=== PATIENT | female | born 1970 | race Caucasian/White ===

== ENCOUNTER 2024-09-12 19:17 | Emergency (ER) | payer BC, SELFPAY ==
[2024-09-12 19:34] VITALS: BP 135/79
[2024-09-12 19:59] LABS: % Basophils 0.2 % (0-2); % Immature Granulocytes 0.5 % (0-0.5); % Lymphocytes 37.7 % (20.5-51.1); % Monocytes 5.4 % (1.7-9.3); % Neutrophils 56.2 % (42.2-75.2); Absolute Lymphocytes 2.2 10^3/uL (1.2-3.4); Absolute Monocytes 0.3 10^3/uL (0.1-0.6); Absolute Neutrophils 3.3 10^3/uL (1.4-6.5); Hematocrit 44.1 % (37.0-47.0); Hemoglobin 14.3 g/dL (12.0-16.0); Mean Corp Hgb Conc. 32.4 g/dL (33.0-37.0); Mean Corpuscular Hgb 27.7 pg (27.0-31.0); Mean Corpuscular Volume 85.5 fL (81.0-99.0); Mean Platelet Volume 8.7 fL (7.4-10.4); Nucleated Red Blood Cells % 0 %; Platelet Count 207 10^3/uL (130-400); Red Blood Cell Count 5.16 10^6/uL (4.20-5.40); Red Cell Dist. Width 14.2 % (11.5-14.5); White Blood Cell Count 5.9 10^3/uL (4.8-10.8)
[2024-09-12 20:13] LABS: ALT (SGPT) 21 U/L (0-35); AST (SGOT) 24 U/L (14-36); Albumin 4.5 g/dl (3.5-5.0); Alkaline Phosphatase 63 U/L (38-126); Blood Urea Nitrogen 17 mg/dl (7-17); Calcium 9.6 mg/dl (8.4-10.2); Carbon Dioxide 29 mmol/L (22-30); Chloride 102 mmol/L (98-107); Glucose 94 mg/dl (70-99); Potassium 4.2 mmol/L (3.5-5.1); Sodium 139 mmol/L (135-145); Total Bilirubin 0.4 mg/dl (0.2-1.3); Total Protein 7.5 g/dl (6.3-8.2); Urine Albumin 2+ (Neg - Trace); Urine Bilirubin Negative (Negative); Urine Character Slightly Cloudy (Clear); Urine Color Amber; Urine Glucose Negative (Negative); Urine Ketone Trace (Negative); Urine Leukocyte 1+ (Negative); Urine Nitrite Positive (Negative); Urine Occult Blood 4+ (Negative); Urine Urobilinogen Negative (Neg - 1+); eGFR > 60.00
[2024-09-12 20:31] LABS: Urine Bacteria Many (Negative); Urine Red Blood Cell >100 /HPF (0-2); Urine Squamous Cell 0-2 /LPF (Few)
--- NOTE | 2024-09-12 20:37 | ED.GENMED ---
History of Present Illness
General
Chief Complaint: Urinary Symptoms
Time Seen by Provider: 09/12/24 20:37
History of Present Illness
History of Present Illness:
TIME OF INITIAL ENCOUNTER: 8:37 PM
HPI: Patient presents with lower abdominal discomfort associated with some gross hematuria, the pain is also into her back. The pain is bilateral and described as a queasy/cramping sensation. She has never had anything like this before. No fevers.
EXAM:
GENERAL: Well appearing in no distress
HEENT: Moist oral mucosa
CARDIOVASCULAR: No murmurs, normal heart rate, regular rhythm, No chest wall tenderness
PULMONARY: No respiratory distress, breath sounds are clear and equal
ABDOMEN: Soft with no peritoneal signs, no tenderness, no CVA tenderness
NEUROLOGIC: Excellent strength all extremities, no coordination deficits
PSYCHIATRIC: Appropriate mental status, normal insight and judgement
EXTREMITIES: Nontender, no edema, moves all extremities equally
SKIN: No rash, no lesions
NUMBER AND COMPLEXITY OF PROBLEMS ADDRESSED AT THE ENCOUNTER
� Chronic conditions affecting care: Has had Lap-Band, seizures, has had C-sections
� Acute Exacerbation and/or Progression of Chronic Illness: This is an acute problem
� Differential Diagnosis includes: Hemorrhagic cystitis, UTI, kidney stone, no evidence for sepsis
AMOUNT AND/OR COMPLEXITY OF DATA TO BE REVIEWED AND ANALYZED
� I performed an independent evaluation of and my interpretation is:
EKG:
CT: Imaging shows a 7 mm stone at the left renal pelvis with moderate amount of hydronephrosis
X-rays:
Laboratory Studies: Urinalysis: Positive nitrite, greater than 100 red cells, 3-5 white cells per high-powered field, many bacteria; white count normal, hemoglobin normal, chemistries normal
Other:
� Review of other/old records: No old records available for review
� Clinical information was obtained by an independent historian: Spoke to niece present at bedside
� Prescriptions/Medications Considered but not given: Considered narcotic analgesia for the patient does not have any significant pain�the patient states she already has Zofran at home
� Further testing considered but not performed:
RISK OF COMPLICATIONS AND/OR MORBIDITY OR MORTALITY OF PATIENT MANAGEMENT
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
� Discussion with other providers: Discussed case with Dr. Benitez�agrees with close outpatient follow-up and can see in the office
� Escalation of care including admission/observation vs risk of discharge considered: Blood noted on urinalysis with questionable signs of infection. Given the associated pain will obtain CT imaging.
ANY OTHER UPDATES:
CT imaging reviewed with Dr. Benitez. The patient appears very comfortable. Rather atypical presentation for a ureteral stone. She does have a stone at the renal pelvis with hydronephrosis. Will also start antibiotics.
Phy Exam
Physical Exam
Physical Exam:
See HPI
Course
Orders/Labs/Results
Orders:
Orders
09/12/24 19:49
Comprehensive Metabolic Panel Urgent
Urinalysis Reflex To Culture Urgent
Date Specimen was Collected: 09/12/24
Time Specimen was Collected: 19:38
Urine Microscopic Reflex Cult Urgent
Urine Culture Urgent
BASILIO Source: U
Specimen Description:
Date Specimen was Collected: 09/12/24
Time Specimen was Collected: 19:38
09/12/24 19:50
Complete Blood Count/With Diff Urgent
09/12/24 20:50
CT Abd/pel Without Iv Or Oral Urgent
Comment:
Reason For Exam: hematuria back/abd pain
09/12/24 20:52
Ciprofloxacin HCl [Cipro] 500 mg PO NOW STA
Abnormal Lab Results
09/12/24 09/12/24
19:49 19:50
MCHC 32.4 L g/dL
(33.0-37.0)
Urine Ketones Trace A
(Negative)
Ur Occult Blood Reflex 4+ A
(Negative)
Urine Nitrite (Reflex) Positive A
(Negative)
Leukocyte Esterase Rfl 1+ A
(Negative)
Urine RBC >100 A /HPF
(0-2)
Urine Bacteria (Reflex) Many A
(Negative)
Urine Albumin (Reflex) 2+ A
(Neg - Trace)
09/12/24 19:50
09/12/24 19:49
Vital Signs
Initial and Last Documented VS:
Initial Vital Signs
Temp Pulse Resp BP Pulse Ox
36.8 C 73 16 135/79 98
09/12/24 19:34 09/12/24 19:34 09/12/24 19:34 09/12/24 19:34 09/12/24 19:34
Last Documented Vital Signs
Temp Pulse Resp BP Pulse Ox
36.8 C 73 16 135/79 98
09/12/24 19:34 09/12/24 19:34 09/12/24 19:34 09/12/24 19:34 09/12/24 19:34
*Critical Care Note
Total Time (30-74mins, 75-104mins- exclusive of procedures): Not Applicable
ED Attending Note
-
Portions of this chart may have been created with voice recognition software.� Occasional wrong word or��sound alike� substitutions may have occurred due to the inherent limitations of voice recognition software.
Discharge Plan
Departure
Patient Disposition: Home (Routine Discharge)
Date of Disposition: 09/12/24
Time of Disposition: 23:34
Patient with high blood pressure during this ER visit?: Yes
Discharge Problem:
Gross hematuria
Instructions: Kidney stones in adults, Blood in Urine (Hematuria), Adult ED
Prescriptions:
New
ciprofloxacin HCl 500 mg tablet
500 mg PO BID Qty: 14 0RF
Referrals:
Flashner,Timmy C., MD [Active] - Tomorrow
UNKNOWN - PT DOES,NOT KNOW [Family Provider] -
Activity Restrictions/Additional Instructions:
I notified Dr. Benitez, urologist. Please call their office in the morning they would likely get you in for an elective procedure as an outpatient. I am sending a prescription to your pharmacy for antibiotics.
Interventions
Interventions:
*Risk Screen - Suicide Last Done: 09/12/24 19:34
*General Assessment Last Done: 09/12/24 19:34
*Neglect/Abuse Screening Last Done: 09/12/24 19:34
ED- Fall Risk Assessment Last Done: 09/12/24 21:06
*ED COVID-19 Vaccine History Last Done: 09/12/24 19:34
ED-Female Genitourinary Assessment Last Done: 09/12/24 20:53
Discharge Date and Time
Print Language: LEBANESE
[2024-09-12] MEDS: CIPRO 500 MG PO (21:06)
[2024-09-12 21:08] VITALS: BMI 28.9
[2024-09-12 23:55] VITALS: BP 152/84
== END 2024-09-12 23:55 | disposition home or self-care (01) ==
LOC: EMR 19:17
PROVIDERS: Emergency Medicine; EMERGENCY PHYSICIAN Emergency Medicine
DX: R31.0 Gross hematuria (principal)
CPT/HCPCS: 99284; 74176; 80053; 81003; 81015; 85025; 87086

== ENCOUNTER 2024-09-16 06:33 | Day surgery (SDC) | payer BC, SELFPAY ==
[2024-09-15 14:06] VITALS: BMI 27.4
--- NOTE | 2024-09-15 16:07 | PTCARENOTE ---
Abn ECG, Dr Whyte notified, no additional interventions requested.
[2024-09-16 12:00] VITALS: BMI 27.4
[2024-09-16 12:01] VITALS: BP 143/70
[2024-09-16] MEDS: NORMOSOL-R/PLASMALYTE-A 1000 IV (12:24)
[2024-09-16 14:06] VITALS: BP 125/68; BP 143/70
[2024-09-16 14:15] VITALS: BP 98/52
[2024-09-16] MEDS: DETROL LA 4 MG PO (14:23)
[2024-09-16] MEDS: Pyridium 200 MG PO (14:24)
[2024-09-16 14:30] VITALS: BP 120/60
[2024-09-16 14:40] VITALS: BP 112/60
[2024-09-20 13:08] LABS: Stone Analysis Mass 8 mg
== END 2024-09-16 15:20 | disposition home or self-care (01) ==
LOC: SDS 06:33
PROVIDERS: ATTENDING PHYSICIAN Specialist; REFERRING PHYSICIAN Surgery
DX: N13.2 Hydronephrosis with renal and ureteral calculous obstruction (principal)
CPT/HCPCS: 52356; 36415; 74018; 76000; 82365; 93005; C1769; C1894; C2617

== ENCOUNTER → 2024-12-05 14:38 | Outpatient (REF) | payer OTHER, SELFPAY ==
[2024-12-05 20:17] LABS: Hepatitis B Surface Antibody Positive
[2024-12-06 12:13] LABS: Rubeola (Measles) IgG Positive
== END ==
LOC: REG 14:38
PROVIDERS: ATTENDING PHYSICIAN Nurse Practitioner Family
DX: Z23 Encounter for immunization (principal)
CPT/HCPCS: 36415; 86706; 86765

== ENCOUNTER → 2024-12-16 09:54 | Outpatient (REF) | payer BC, SELFPAY | LOC: REG 09:54 | PROVIDERS: ATTENDING PHYSICIAN Surgery | DX: N20.0 Calculus of kidney (principal) | CPT/HCPCS: 81050; 82340; 82436; 82507; 83735; 83945; 83986; 84105; 84133; 84300; 84392; 84560 ==

== ENCOUNTER → 2024-12-16 15:24 | Outpatient (REF) | payer BC, SELFPAY | LOC: HWRAD 15:24 | PROVIDERS: ATTENDING PHYSICIAN Surgery | DX: N20.0 Calculus of kidney (principal) | CPT/HCPCS: 76775 ==

== ENCOUNTER 2025-01-18 13:00 | Emergency (ER) | payer SELFPAY ==
[2025-01-18 13:04] VITALS: BP 153/83
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
[2025-01-18] MEDS: FLEXERIL 10 MG PO (14:06)
== END 2025-01-18 14:12 | disposition home or self-care (01) ==
LOC: EMR 13:00
PROVIDERS: EMERGENCY PHYSICIAN Emergency Medicine
DX: S39.012A Strain of muscle, fascia and tendon of lower back, initial encounter (principal); S16.1XXA Strain of muscle, fascia and tendon at neck level, initial encounter; R51.9 Headache, unspecified; V49.40XA Driver injured in collision with unspecified motor vehicles in traffic accident, initial encounter; Y92.410 Unspecified street and highway as the place of occurrence of the external cause; R03.0 Elevated blood-pressure reading, without diagnosis of hypertension; Z88.0 Allergy status to penicillin; Z91.018 Allergy to other foods
CPT/HCPCS: 99283